=== PATIENT | female | born 1990 | race Two or more races ===

== ENCOUNTER 2016-08-26 11:15 | Emergency (ER) | payer SELFPAY ==
[~2016-08-26] VITALS: Ht 167.6 cm; Wt 86.2 kg
[2016-08-26 13:13] VITALS: BP 116/75
[2016-08-26] MEDS ORDERED: TRUFORM COMPRE1 EACH MC (14:26)
[2016-08-26 14:32] VITALS: BP 119/79
--- NOTE | 2016-08-27 16:14 | Emergency Room Report ---
History of Present Illness General Chief Complaint: Edema Source: Patient Present Illness HPI 25-year-old female present to ED for evaluation. Patient notes bilateral leg swelling and ankle swelling x3 days. Denies pain. Patient is concerned because she has history of DVT in the past. Previously on Coumadin but is no longer on any medications. Denies any chest pain or shortness of breath. Denies any fevers or chills. Denies trauma. No other aggravating relieving factors. 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 Review of Systems All Other Systems: negative except mentioned in HPI Physical Exam Vital Signs Date Time Temp Pulse Resp B/P Pulse Ox O2 Delivery O2 Flow Rate FiO2 08/26/16 11:30 98.1 65 17 111/71 98 08/26/16 11:41 Room Air Sp02 EP Interpretation: reviewed, normal General Appearance: no apparent distress, alert, GCS 15, non-toxic Head: normocephalic Eyes: bilateral eye PERRL, bilateral eye normal inspection ENT: normal ENT inspection Neck: normal inspection Respiratory: chest non-tender, lungs clear, normal breath sounds, speaking full sentences Cardiovascular #1: regular rate, rhythm, no edema Gastrointestinal: normal inspection Rectal: deferred Genitourinary: no CVA tenderness Musculoskeletal: swelling - bilateral LE/calf Neurologic: alert, oriented x3, responsive, motor strength/tone normal, sensory intact, speech normal Psychiatric: normal inspection Skin: normal inspection Lymphatic: normal inspection Medical Decision Making Diagnostic Impression: Primary Impression: Pedal edema ER Course Hospital Course 25-year-old female presents to ED with bilateral leg swelling and Swelling. History of DVT Differential diagnoses include: sprain, DVT, pedal edema Clinical course Patient placed on stretcher. After initial history and physical, I ordered bilateral doppler LEs Doppler ultrasound showed recanalized thrombus in right leg, no acute DVT. No DVT left leg Likely pedal edema. Reassurance given Diagnosis - pedal edema Stable and discharged to home with prescription for compression stockings. keep elevated. weight bear as tolerated. Followup with PMD. Return to ED if symptoms recur or worsen CT/MRI/US Diagnostic Results CT/MRI/US Diagnostic Results : Imaging Test Ordered: doppler US Impression no acute DVT bilateral LE Last Vital Signs Date Time Temp Pulse Resp B/P Pulse Ox O2 Delivery O2 Flow Rate FiO2 08/26/16 14:32 98.3 69 18 119/79 99 Room Air Disposition: HOME, SELF-CARE Condition: Stable Scripts Comp.stocking,Knee,Regular,Lrg (TRUFORM COMPRESSION STOCKING) 1 Each Each 1 EACH , #2 Prov: MYRNA RDZ M.D. 08/26/16 Patient Instructions: Peripheral Edema MYRNA RDZ M.D. Aug 27, 2016 16:14
--- NOTE | 2016-08-28 17:27 | Diagnostic Imaging Report ---
APPROVED REPORT CPT Code: 36266 Present Symptoms Comments: Swelling RIGHT LEG: Venous imaging reveals recanalized chronic thrombus in the superficial femoral and popliteal veins. Large collateral vein noted anterior to the superficial femoral artery. The remainder of the deep venous system is within normal limits. There is no evidence of thrombus in the common femoral, or calf veins. The greater saphenous vein is also within normal limits. Doppler indicates normal spontaneous flow within these segments. LEFT LEG: Venous imaging reveals a patent deep venous system. There is no evidence of thrombus within the femoral, popliteal or tibial segments. The greater saphenous vein is also within normal limits. Doppler indicates normal spontaneous flow within these segments. Incidental finding: Enlarged lymph node noted at the right superficial femoral vein level, measuring (2.2cm x 5.8cm) Incidental findings: Large amount of edema noted around the ankle area BLE. There is no evidence of acute deep vein thrombosis.
== END 2016-08-26 14:32 | disposition home or self-care (01) ==
LOC: EMR 13:00
DX: R60.0 Localized edema (principal); R59.0 Localized enlarged lymph nodes
CPT/HCPCS: 93970; 99284